=== PATIENT | male | born 1990 | race Caucasian/White ===

== ENCOUNTER 2016-10-13 23:11 | Emergency (ER) | payer OTHER ==
[~2016-10-13] VITALS: Ht 180.3 cm; Wt 77.0 kg
[~2016-10-13 23:11] MED LIST: AC500T PO; CPR500T PO; CYCL10TA45 PO; FLUC50TA PO; HYDR-3702 PO; HYDR-3811 PO; NO HOME MEDICATIONS; ONDAN4ODT PO; TRM50T PO
[2016-10-14] MEDS ORDERED: HYDROcodone/APAP 5 MG/325 MG (NORCO) TAB PO ONE (00:05)
[2016-10-14] MEDS ORDERED: NAPR500T3 PO (00:06)
[2016-10-14 02:52] VITALS: BP 125/71
--- NOTE | 2016-10-14 06:25 | Diagnostic Imaging Report ---
EXAMINATION: Left knee, 3 views. COMPARISON: None. INDICATION: 26-year-old male, left knee pain. FINDINGS: There is no identified knee joint effusion. There is no acute fracture or dislocation. Joint spaces are well-preserved. There is no radiopaque foreign body. IMPRESSION: Unremarkable radiographs of the left knee. Dictated by: Dictated on workstation # [id number]
== END 2016-10-14 01:50 | disposition home or self-care (01) ==
LOC: ED 23:13
DX: M25.562 Pain in left knee (principal)
CPT/HCPCS: 73562; 99282; 99283